=== PATIENT | female | born 1960 | race Caucasian/White ===

== ENCOUNTER → 2017-04-05 | Outpatient (CLI) | payer MEDICAID ==
[~2017-04-05] MED LIST: CITA20TA9 PO; FLUO20CA8 PO; FLUT12HF2 INH; GABA100C8 PO; LEVO50TA5 PO; LOVA20TA2 PO
== END | disposition home or self-care (01) ==
LOC: CFH 14:35
PROVIDERS: ATTEND Internal Medicine Cardiovascular Disease
DX: I08.3 Combined rheumatic disorders of mitral, aortic and tricuspid valves (principal); I37.1 Nonrheumatic pulmonary valve insufficiency
CPT/HCPCS: 93306

== ENCOUNTER → 2017-11-22 | Outpatient (CLI) | payer MEDICAID ==
[~2017-11-22] MED LIST changes: +GABA-826 PO; -GABA100C8 PO
== END | disposition home or self-care (01) ==
LOC: CFH 07:21
PROVIDERS: ATTEND Physician Assistant
DX: K21.9 Gastro-esophageal reflux disease without esophagitis (principal); R01.1 Cardiac murmur, unspecified; R19.4 Change in bowel habit; R19.7 Diarrhea, unspecified; R05 Cough; R49.0 Dysphonia
CPT/HCPCS: 74245

== ENCOUNTER 2019-03-02 15:39 | Emergency (ER) | payer MEDICAID ==
[~2019-03-02] VITALS: Ht 165.1 cm; Wt 61.1 kg
--- NOTE | 2019-03-02 16:10 | NUR ---
PT C/O INTERMITTENT ABD PAIN SINCE 1000 THIS MORNING, WORSE THIS MORNING. PT C/O NAUSEA, PAINFUL URINATION, DIARRHEA AND BILAT FLANK PAIN. PT HAS SIMILAR GI HX AND IS BEING FOLLOWED BY ALLIE LAFLEUR.
[2019-03-02 16:35] LABS: BASOPHILS # (AUTO) 0.05 x10^3/uL (0-0.1); BASOPHILS % (AUTO) 1 % (0-1); EOSINOPHILS % (AUTO) 3 % (1-7); LYMPHOCYTES # (AUTO) 1.47 x10^3/uL (1-3.4); LYMPHOCYTES % (AUTO) 24 % (22-44); MD NO; MEAN CORPUSCULAR HEMOGLOBIN 28.6 pg (27.0-34.8); MEAN CORPUSCULAR VOLUME 86.7 fL (80-100); MEAN PLATELET VOLUME 7.3 fL (7.4-10.4); MONOCYTES # (AUTO) 0.52 x10^3/uL (0.2-0.8); MONOCYTES % (AUTO) 8 % (2-9); NEUTROPHILS # (AUTO) 4.02 x10^3/uL (1.8-6.8); NEUTROPHILS % (AUTO) 64 % (42-75); PLATELET COUNT 385 x10^3/uL (130-400); RED BLOOD COUNT 5.23 x10^6/uL (3.82-5.3); RED CELL DISTRIBUTION WIDTH 14.5 % (9.6-15.2)
[2019-03-02 16:37] LABS: ALANINE AMINOTRANSFERASE 29 U/L (12-78); ALBUMIN 4.2 g/dL (3.4-5.0); ANION GAP 8 mmol/L (5-15); CALCIUM 9.6 mg/dL (8.5-10.1); CHLORIDE 109 mmol/L (98-107); CREATININE 0.96 mg/dL (0.55-1.02)
[2019-03-02 16:39] LABS: ALKALINE PHOSPHATASE 83 U/L (45-117); BILIRUBIN,TOTAL 0.7 mg/dL (0.2-1.0); TOTAL PROTEIN 7.7 g/dL (6.4-8.2)
[2019-03-02] MEDS ORDERED: HYDROmorphone 2 MG/ML, 1ML ONE (17:20)
[2019-03-02] MEDS ORDERED: HYDROmorphone 2 MG/ML, 1ML IVPush PRN (17:30)
[2019-03-02 17:32] LABS: CULTURE INDICATED? NO; MICROSCOPIC NOT IND
--- NOTE | 2019-03-02 18:00 | NUR ---
MEDICATED PER EMAR AFTER PIV PLACED-REPORTED PAIN AT 04/[address] SCAN VITALS UPDATED-WNL POC UPDATED AT BEDSIDE
--- NOTE | 2019-03-02 18:35 | NUR ---
PATIENT REPORTS PAIN IMPROVED TO 1/10 DENIES OTHER COMPLAINTS. VITALS REMAIN WNL UPDATE DON POC PLAYING GAME ON IPAD/CALL YUSUF IN HAND AT BEDSIDE
[2019-03-02 18:58] VITALS: BP 114/65
== END 2019-03-02 19:02 | disposition home or self-care (01) ==
LOC: ED 17:48
DX: R10.12 Left upper quadrant pain (principal); R11.0 Nausea; K21.9 Gastro-esophageal reflux disease without esophagitis; E03.9 Hypothyroidism, unspecified
CPT/HCPCS: 36415; 74177; 80053; 81003; 83690; 85025; 96374; 99284; J1170